=== PATIENT | female | born 1980 | race Caucasian/White ===

== ENCOUNTER → 2016-09-18 | Outpatient (CLI) | payer OTHER ==
--- NOTE | 2016-09-18 21:10 | DI ---
XR KNEE CMPT 4 OR MORE VWS,09/18/2016 4:04 PM: Clinical History: Left knee pain of unspecified chronicity. Previous Exam: November 16, 2011 Findings: 4 views of the left knee are obtained, and demonstrate anatomic alignment without fractures. The surr ounding soft tissues are unremarkable. There is stable mild loss of joint space within the medial com partment. 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
== END ==
LOC: ORTHO 16:23
PROVIDERS: ATTEND Orthopaedic Surgery
DX: M25.562 Pain in left knee (principal); M25.462 Effusion, left knee
CPT/HCPCS: 73564

== ENCOUNTER → 2016-10-02 | Outpatient (CLI) | payer OTHER ==
--- NOTE | 2016-10-02 10:38 | DI ---
MRI LOW EXTREMITY JNT W/O CN,10/02/2016 7:56 AM: Clinical History: Left knee joint effusion. Previous Exam: MRI performed October 07, 2011 Findings: Multiplanar MR images are obtained through the left knee without contrast, and demonstrate no signifi cant knee joint effusion. Alignment is anatomic. No fractures are seen. Marrow signal is preserved. T here is some minimal chondromalacia within the anterior compartment. The anterior and posterior cruciate ligaments are intact. The medial and lateral collateral ligaments are also intact. The major vascular flow voids are unremarkable. Medial and lateral menisci are intact. There is a small full-thickness osteochondral defect involving the weightbearing surface of the later al femoral condyle. Signal within the musculature is unremarkable. The quadriceps and patellar tendons are unremarkable as well. Impression: Old full-thickness osteochondral defect which appears to be well healed involving the weightbearing s urface the lateral femoral condyle. 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 No significant knee joint effusion.
== END ==
LOC: MRI 07:51
PROVIDERS: ATTEND Orthopaedic Surgery
DX: M25.462 Effusion, left knee (principal)
CPT/HCPCS: 73721

== ENCOUNTER → 2016-10-09 | Outpatient (CLI) | payer OTHER ==
--- NOTE | 2016-10-10 14:51 | DI ---
AP PELVIS and LEFT HIP, 10/09/2016 12:22 PM: Clinical History: Left hip pain. Previous Exam: None at this facility. There is no soft tissue abnormality. The bony structures of the pelvis are normal. 2 views of the lef t hip are normal. Readin. Normal left hip exam. 2. The AP pelvis view is unremarkable.
== END ==
LOC: ORTHO 12:38
PROVIDERS: ATTEND Orthopaedic Surgery
DX: M25.552 Pain in left hip (principal); S83.32XD Tear of articular cartilage of left knee, current, subsequent encounter
CPT/HCPCS: 73502

== ENCOUNTER 2016-12-16 10:01 | Day surgery (SDC) | payer OTHER ==
[~2016-12-16 10:01] MED LIST: EPINEPHrine Inj (1:1,000) 30mg/30ml vial ONE; LIDOCAINE W/ SODIUM BICARB 0.5 ML SYR ONE; Lactated Ringers 1,000 ML PRIMARY IV ONE; Ropivacaine 0.2% VIAL 20 ML ONE; ceFAZolin Inj 2gm (Premix) 50 ML IV ONE
[2016-12-16] MEDS ORDERED: KETAMINE 100 MG/1 ML - 5 ML ONE (10:21)
[2016-12-16] MEDS ORDERED: MIDAZOLAM 5 MG/1 ML ONE (10:21)
[2016-12-16] MEDS ORDERED: fentaNYL Inj 250 MCG/5 ML VIAL ONE (10:21)
[2016-12-16] MEDS ORDERED: LIDOCAINE MPF 2% - 5 ML (20 MG/1 ML) ONE (10:22)
[2016-12-16] MEDS ORDERED: ONDANSETRON 4 MG/2 ML VIAL ONE (10:41)
[2016-12-16] MEDS ORDERED: Acetaminophen 1000mg Inj 100 ML IV ONE (10:41)
[2016-12-16] MEDS ORDERED: DEXAMETHASONE PF 10 MG/1 ML VIAL ONE (10:41)
[2016-12-16 11:03] VITALS: RESP 18
[2016-12-16] MEDS ORDERED: Lactated Ringers 1,000 ML PRIMARY IV ONE (11:34)
[2016-12-16] MEDS ORDERED: ESMOLOL HCL 100 MG/10 ML VIAL ONE ×2 (11:53→12:09)
[2016-12-16] MEDS ORDERED: TRANEXAMIC ACID 1,000 MG / 10 ML VIAL ONE (11:57)
[2016-12-16] MEDS ORDERED: Sodium Chloride 0.9% 100 ML IV ONE (11:58)
[2016-12-16] MEDS ORDERED: BETAMET ACET/BETAMET NA PH 6 MG/1 ML - 5 ML ONE (12:23)
[2016-12-16] MEDS ORDERED: KETOROLAC 30 MG/1 ML VIAL ONE (12:32)
[2016-12-16] MEDS ORDERED: KETOROLAC 15 MG/1 ML VIAL IVP PRN (12:43)
[2016-12-16] MEDS ORDERED: BISACODYL 10 MG SUPPOSITORY RECTAL PRN (12:43)
[2016-12-16] MEDS ORDERED: BISACODYL 5 MG TABLET PO PRN (12:43)
[2016-12-16] MEDS ORDERED: Prochlorperazine Tab 10 MG TAB PO PRN (12:43)
[2016-12-16] MEDS ORDERED: ONDANSETRON 4 MG/2 ML VIAL IVP PRN (12:43)
[2016-12-16] MEDS ORDERED: IBUPROFEN 400 MG TABLET PO PRN (12:43)
[2016-12-16] MEDS ORDERED: NORMAL SALINE 10 ML SYRINGE FLUSH IVP PRN ×2 (12:43→13:00)
[2016-12-16] MEDS ORDERED: ACETAMINOPHEN 325 MG TABLET PO PRN (12:43)
[2016-12-16] MEDS ORDERED: diphenhydrAMINE 25 MG CAPSULE PO PRN (12:43)
[2016-12-16] MEDS ORDERED: Ondansetron ODT Tab 8 MG TAB PO PRN (12:43)
[2016-12-16] MEDS ORDERED: MAG HYDROX/AL HYDROX/SIMETH 30 ML SUSP PO PRN (12:43)
[2016-12-16] MEDS ORDERED: CALCIUM CARBONATE 500 MG (TUMS) CHEWABLE TABLET PO PRN (12:43)
[2016-12-16] MEDS ORDERED: Lactated Ringers 1,000 ML PRIMARY IV SCH (12:45)
[2016-12-16 14:56] VITALS: TEMP 98.9
[2016-12-17] MEDS ORDERED: ASPIRIN 325 MG EC TABLET PO SCH (09:00)
--- NOTE | 2016-12-17 15:01 | OPS CRUTCH ---
Diagnosis : Left Knee Chondroplasty Referral Reason: Gait Training/Knee Cryo Cuff S: The patient states she has used crutches before and does not have stairs. O: Patient was instructed in the use of crutches with gait belt x50. The patient was also issued a Cryo-Cuff and instructed in its proper use and care. A: The patient tolerated ambulation well. P: No further therapy is indicated at this time. MTDD
== END 2016-12-16 14:38 | disposition home or self-care (01) ==
LOC: SDSC 10:01
PROVIDERS: ATTEND Orthopaedic Surgery
DX: M67.52 Plica syndrome, left knee (principal); M65.862 Other synovitis and tenosynovitis, left lower leg
CPT/HCPCS: 29876; 97116; J0131; J0171; J0690; J0702; J1100; J1885; J2001; J2250; J2405; J2704; J2795; J3010; J7050; J7120